=== PATIENT | female | born 1980 | race Two or more races ===

== ENCOUNTER → 2024-02-26 09:47 | Outpatient (REF) | payer OTHER, SELFPAY | LOC: MRI 3T 09:47 | PROVIDERS: ATTENDING PHYSICIAN Family Medicine | DX: M25.562 Pain in left knee (principal) | CPT/HCPCS: 73721 ==

== ENCOUNTER 2024-11-23 06:16 | Day surgery (SDC) | payer OTHER, SELFPAY ==
[2024-11-23] VITALS (9 sets, daily range): BP systolic 116–133; BP diastolic 79–96; BMI 25.8
[2024-11-23] MEDS: TYLENOL 1000 MG PO (11:34)
[2024-11-23] MEDS: NORMOSOL-R/PLASMALYTE-A 1000 IV (11:34)
[2024-11-23] MEDS: DILAUDID 0.25 MG IV ×2 (15:22→15:33)
--- NOTE | 2024-11-23 15:32 | W.IMMPOSTOP ---
Surgical Immed Post Op Note
-
Primary Surgeon: Deric Rodriguez MD
Assisting Surgeon:
Pre-op Diagnosis: left knee medial meniscal tear
Post-op Diagnosis: left knee medial meniscal tear
Procedure Performed: arthroscopic left knee partial medial meniscectomy
Anesthesia Type: general
Specimen / Cultures: none
Estimated Blood Loss: 1mL
Complications: none apparent
Operative Findings: stable radial tear of posterior horn medial meniscus, horizontal tear anterior horn medial meniscus, grade 2 chondrosis medial tibial plateau
Operative dictation #: [id number]
[2024-11-23] MEDS: ZOFRAN 4 MG IV (16:37)
[2024-11-23] MEDS: COMPAZINE 5 MG IV (17:15)
== END 2024-11-23 17:33 | disposition home or self-care (01) ==
LOC: SDS 06:16
PROVIDERS: ATTENDING PHYSICIAN Student in an Organized Health Care Education/Training Program; FAMILY PHYSICIAN Family Medicine
DX: S83.242A Other tear of medial meniscus, current injury, left knee, initial encounter (principal); X58.XXXA Exposure to other specified factors, initial encounter
CPT/HCPCS: 29881